=== PATIENT | female | born 1950 | race Hispanic/Latino ===

== ENCOUNTER 2017-02-27 08:51 | Day surgery (SDC) | payer MEDICAID ==
--- NOTE | 2017-02-24 09:09 | PCM.ANEPRE ---
Anesthesia Pre-Op Review Reason for Review: admissions 08/2016 and 09/2016 for stroke, resp failure. Hgb A1c 8.7 Anesthesia Recommendations: Proceed with Procedure Additional Comments 66yo woman with CRF and catheter dialysis 3x/wk. for left brachiocephalic fistula by patrice wadsworth (possible GA) on 02/27/17. End stage complications Note bradycardia during JUAN 09/11 that resolved: DATE OF SERVICE: 09/05/2016 CRITICAL CARE NOTE: This lady underwent JUAN. She had a stroke, and I was asked to do a JUAN. While doing the JUAN, the patient suddenly became markedly bradycardic and apneic. She was given 0.4 mg of Narcan. She did not respond. CPR was started at that point and an amp of epinephrine was given. Following that, she got another amp of Narcan as well as 0.5 of Romazicon. Following that, spontaneous respiration was noted, and she went into sinus tachycardia interrupted by what appeared to be atrial fibrillation and periods of rate-related bundle branch block. Admitted again 10/12 with fluid overload and had another (decent) JUAN: 10/09/16 discharge summary: Hospital Course Patient is a 66-year-old female with a past medical history of hypertension diabetes CVA and GERD that is presenting with a 2 week history of progressively worsening dyspnea and bilateral lower extremity swelling. She was initially thought to have CHF, however her echocardiogram showed only mild CHF indicating her fluid overload was most likely secondary to renal failure and fluid overload. She was treated with Lasix through her IV and she improved through her hospital stay and was eventually able to wean off oxygen. I did consult nephrology for her chronic renal failure. She was discharged home on 40 mg of Lasix twice a day per nephrology. She will need follow-up with nephrology as an outpatient as she will likely eventually need hemodialysis. She will also need follow-up with primary care physician in one week. She was stable at the time of discharge. Delineated problem list as below JUAN Interpretation Summary 10/07/16 The left ventricle is normal in size. Left ventricular systolic function is normal without focal wall motion abnormalities. The ejection fraction is estimated to be 55-60%. Assessment of diastolic parameters suggests a pseudonormalization pattern, consistent with elevated filling pressures ( evidence for diastolic CHF).The right ventricle is normal in size and function. The right ventricular systolic pressure is estimated at 42 mmHg assuming a right atrial pressure of 8 mm Hg.The left atrium is moderately dilated. The right atrium is mildly dilated. The interatrial septum bows toward right atrium consistent with elevated left atrial pressure.There is mild to moderate mitral regurgitation. There is moderate tricuspid regurgitation. There is no other significant valvular heart disease. Pt will have recent dialysis labs. Evidently stable (no ER visits/ hospitalizations) in 2017. Ok to proceed with usual DOS evaluation and conversation with Patrice on anesthetic techniques, and discussion of higher risks due to her medical conditions with patient. Chart Reviewed by: Percy Foster MD, MD Feb 24, 2017 09:09
[~2017-02-27] VITALS: Ht 167.6 cm; Wt 65.1 kg
[~2017-02-27 08:51] MED LIST: 0.9% Sodium Chloride 500 ML IV SCH; AMLO5TAB2 PO; ASPI-973 PO; CLOP75TA28 PO; CeFAZolin 2 Gm/50 mL D5W IV Premix IV ONE; INSU100C8 SUBQ; INSU100V7 SUBQ; LABE100T4 PO; LIP40 PO; LOSA25TA21 PO
[2017-02-27] MEDS ORDERED: Phenylephrine/NS 100 mCg/mL 10 mL Syringe IVPUSH ONE (08:52)
[2017-02-27] MEDS ORDERED: fentaNYL-PF 50 mCg/mL 2 mL Inj ONE (08:52)
[2017-02-27] MEDS ORDERED: Vasopressin 20 Unit/mL Inj ONE (08:52)
[2017-02-27] MEDS ORDERED: Propofol 10,000 mCg/mL 20 mL Inj ONE (08:52)
[2017-02-27] MEDS ORDERED: EPHEDrine/NS 5 mg/mL 5 mL Syringe ONE (08:52)
[2017-02-27] MEDS ORDERED: Dexamethasone 4 mg/mL Inj ONE (08:52)
[2017-02-27] MEDS ORDERED: 0.9% Sodium Chloride 1,000 ML IV ONE (09:30)
[2017-02-27 09:37] VITALS: BP 148/67; PULSE 69; RESP 14; O2SAT 97
[2017-02-27] MEDS ORDERED: FURO40TA4 PO (10:01)
[2017-02-27] MEDS ORDERED: Bupivacaine-MPF 0.5% 30 mL Inj INFILTRATE ONE (11:28)
[2017-02-27] MEDS ORDERED: Heparin 5,000 Unit/mL Inj IR ONE (11:28)
--- NOTE | 2017-02-27 12:12 | PCM.HPANE ---
Patient Data Date of Service: Feb 27, 2017 Surgeon Admitting Provider: Attending Provider:Los Iraheta MD Primary Care Physician:Carleen Rebolledo MD Other Provider:Howard Woodard Anesthesia Reason for Visit End Stage Renal Failure Ht/WT & BMI Height (Feet): 5 Height (Inches): 6.00 Weight (Kilograms): 65.100 Body Mass Index 23.00 Allergies Coded Allergies: No Known Allergies (Verified , 09/16/16) Past Anesthesia History Anesthesia History: Denies:: Anesthesia Reactions Diabetes History Hx Diabetes?: Yes (INSULIN CONTROLLED) Type of Diabetes: Type II Current Bedside Blood Glucose: 138 MRSA MRSA: No Medications Blood Thinner: Aspirin, Plavix Hypertension Medication: Yes Home Meds Incl Beta Jae: Yes (LABETALOL) Date Beta Jae Taken: Feb 27, 2017 Time Beta Jae Taken: 0500 Reported Medications Furosemide 40 Mg Addjae35 Mg PO DAILY 02/27/17 Clopidogrel 75 Mg Qcxfae44 Mg PO DAILY Ref 0 02/23/17 Losartan Potassium 25 Mg Qylihm90 Mg PO DAILY 02/23/17 Insulin Aspart (NovoLOG U100 Insulin Vial)100 U/Ml U1 Unit SUBQ prn PRN blood glucose #1 VIAL Ref 0 02/23/17 Atorvastatin (Lipitor)40 Mg Akabxw14 Mg PO DAILY Ref 0 02/23/17 Insulin Glargine (Lantus U100 Insulin Vial)100 Unit/Ml Vial15 Unit SUBQ DAILY # 1 VIAL Ref 0 02/23/17 Labetalol 100 Mg Cbtaws544 Mg PO TID 02/23/17 Aspirin 81 Mg Dxprnb18 Mg PO DAILY Ref 0 02/23/17 Amlodipine 5 Mg Tablet5 Mg PO BID Ref 0 02/23/17 Discontinued Reported Medications Atorvastatin (Lipitor)40 Mg Ydtayn96 Mg PO DAILY Ref 0 10/06/16 Aspirin 325 Mg Kafyao529 Mg PO DAILY #1 BOTTLE 10/06/16 Insulin Aspart (NovoLOG U-100 Pen)100 Unit/Ml Insuln.pen0-4 Units SC ACHS PRN BLOOD SUGAR 10/06/16 Discontinued Scripts Potassium Chloride 20 Meq Tab.er.prt10 Meq PO DAILY 30 Days Ref 0 TAKE WITH FOOD Prov:Mark Eckert DO 10/09/16 Furosemide (Lasix)40 Mg Elboky09 Mg PO BID 30 Days Ref 0 Prov:Mark Eckert DO 10/09/16 Labetalol 200 Mg Geltnh958 Mg PO Q8H 30 Days Prov:Sylvester Sarabia MD 09/08/16 Insulin Glargine (Lantus U100 Insulin Vial)100 Unit/Ml Vial15 Unit SUBQ DAILY 30 Days Prov:Sylvester Sarabia MD 09/08/16 Omeprazole 20 Mg Capsule.dr20 Mg PO DAILY #30 CAPSULE Ref 0 Prov:Sylvester Sarabia MD 09/07/16 Amlodipine 5 Mg Njbuqa02 Mg PO DAILY 30 Days Prov:Sylvester Sarabia MD 09/07/16 Clopidogrel 75 Mg Bbjxxg76 Mg PO DAILY 30 Days Prov:Sylvester Sarabia MD 09/07/16 History History of ENT Problems?: No Hx of Heart Problems?: Yes Cardiovascular History: Positive for:: Edema Hypertension Denies:: Cardiac Surgery (prior hx of heart cath with stents) Chest Pain Congestive Heart Failure Irregular Heartbeat Pacemaker Other Cardiac History: pt had brief cardiac arrest during JUAN- 08/2016 Hx of Respiratory Problem?: Yes Respiratory History: Positive for:: Dyspnea (hx of respiratory failure/ pleural effusion admission 09/2016) Denies:: Asthma COPD Chest Surgery Emphysema Hemoptysis Oxygen Administration Pneumonia Tuberculosis Use of C-PAP Machine Use of Inhalers / NEBS Hx Neurologic Problems?: Yes Neurological History: Positive for:: CVA (prior TIA and current stroke symptoms) Denies:: Alzheimer's Disease Dementia Dizziness Headaches (not prior to this visit) Parkinson's Disease Seizures Hx of GI Problems?: Yes Gastrointestinal History: Positive for:: Heartburn Denies:: Diverticulitis Gastroesphageal Reflux Gastrointestinal Bleeding Hepatitis Hiatal Hernia Rectal Bleeding Hx of Problems?: Yes Other Pertinent History: current dialysis thru tunnel cath Female Hx: Denies:: Currently (POST MENOPAUSAL) Endometriosis Pelvic Inflammatory Problems with Breasts? Skin History: Denies:: History Skin Disorders? Pressure Ulcers Hx Musculoskeletal Problems?: No Musculoskeletal History: Denies:: Fibromyalgia Joint Replacement Musculoskeletal Trauma Osteoarthritis Hx of Psycho/Social Problems?: No Hx Surgeries?: No (tunnel cath placement) Hx Any Other Health Problems?: Yes Other History: Positive for:: Hospitalization Denies:: Cancer Thyroid Disease History Blood Transfusions: Denies:: Blood Transfuse Reaction Blood Transfusions Hx Diabetes: Yes (INSULIN CONTROLLED)Bedside Blood Glucose: 138 Hx Alcohol Use: NoHx Substance Use: No Smoking Status: Never Smoker Have You Smoked inLast 12 mo: No Stop/Bang P-Blood Pressure: treated: Yes B- Body Mass Index > 35 kg/m2: No A- Age over 50: Yes N- Neck Large Circumference: No G- Gender Male: No Risk Assessment Category Category 1A: Patient has history of documented sleep apnea, and HAS NOT received any narcotic, sedative or anesthesia administration during this stay. Category 1B: Patient has history of documented sleep apnea, and HAS received any narcotic , sedative or anesthesia administration during this stay Category 2: Patient has SUSPECTED Obstructive Sleep Apnea, and HAS received any narcotic , sedative or anesthesia administration during this stay. Category 3: Patient has SUSPECTED Obstructive Sleep Apnea and HAS NOT received narcotic, sedative or anesthesia administration during this stay. Category 4: Outpatient in Procedural Areas with known sleep apnea or who screen positive for High Risk via the STOP/BANG questionnaire. Exam Exam Vital Signs Vital Signs Date Time Temp Pulse Resp B/P Pulse Ox O2 Delivery O2 Flow Rate FiO2 02/27/17 09:37 36.3 69 14 148/67 97 Room Air General Appearance: Alert, Oriented X3, Cooperative, No Acute Distress HEENT/AIRWAY: MP 2 (multiple missing, chipped and loose teeth.) Lungs: Clear to Auscultation, Normal Air Movement Heart: Exam Unremarkable, Regular Rate/Rhythm, Murmur (II/ YUNIER RUSB without radiation) Additional Information Distant heart sounds Meds/Labs/Diagnostics Admission Meds Current Medications Sodium Chloride (Normal Saline) 1,000 ml @ ud STK-MED ONCE IV Last administered on 02/27/17 09:30; Start 02/27/17 at 09:30; Stop 02/27/17 at 09:36; Status DC Bupivacaine HCl (Sensorcaine-MPF 0.5% Inj) 30 ml STK-MED ONCE INFILTRATE Last administered on 02/27/17 11:28; Start 02/27/17 at 11:28; Stop 02/27/17 at 11:33; Status DC Heparin Sodium (Porcine) (Heparin Inj) 5,000 unit STK-MED ONCE IR Last administered on 02/27/17 11:28; Start 02/27/17 at 11:28; Stop 02/27/17 at 11:33; Status DC Cefazolin Sodium (Ancef Inj) 2 gm STK-MED ONCE IVPUSH Last administered on t 11:23; Start 02/27/17 at 11:23; Stop 02/27/17 at 11:33; Status DC Bedside Blood Glucose: 138 Labs Test 02/27/17 09:33 Potassium Level 4.8mEq/L (3.5-5.2) Plan Impression Patient chart reviewed, patient interviewed and anesthestic plan with risks, benefits, and alternatives discussed, and informed consent obtained. NPO Status: 02/27@mn, WATER @0730 TODAY ASA Physical Status: ASA3 Severe Disease Anesthetic Plan: GA Bene/Risks/Altern/Consents: Yes HP Complete Prior to Induction: Yes Other [facility] fraud mediating Mark Garcia DO Feb 27, 2017 12:12
[2017-02-27] MEDS ORDERED: Lactated Ringer's 1,000 ML IV SCH (12:14)
[2017-02-27] MEDS ORDERED: Lactated Ringer's 500 ML IV PRN (12:14)
[2017-02-27] MEDS ORDERED: HYDROmorphone 1 mg/mL Inj IVPUSH PRN (12:15)
[2017-02-27] MEDS ORDERED: MetoCLOpramide 5 mg/mL 2 mL Inj IVPUSH PRN (12:15)
[2017-02-27] MEDS ORDERED: Dexamethasone 4 mg/mL Inj IVPUSH PRN (12:15)
[2017-02-27] MEDS ORDERED: Ondansetron 2 mg/mL 2 mL Inj IVPUSH PRN (12:15)
[2017-02-27] MEDS ORDERED: Phenylephrine 10,000 mCg/mL Inj IVPUSH PRN (12:15)
[2017-02-27] MEDS ORDERED: fentaNYL-PF 50 mCg/mL 2 mL Inj IVPUSH PRN (12:15)
[2017-02-27] MEDS ORDERED: EPHEDrine Sulfate 50 mg/mL Inj IVPUSH PRN (12:15)
[2017-02-27] MEDS ORDERED: HYDROcodone-APAP 5-325 mg Tablet PO PRN (12:25)
[2017-02-27 12:27] VITALS: BP 138/59; PULSE 67; RESP 12; O2SAT 98
[2017-02-27 12:35] VITALS: BP 148/63; PULSE 69; RESP 15; O2SAT 98
[2017-02-27 13:00] VITALS: BP 154/66; PULSE 70; RESP 15; O2SAT 92
[2017-02-27 13:10] VITALS: BP 154/60; PULSE 72; RESP 16; O2SAT 92
--- NOTE | 2017-02-27 13:20 | PCM.ANEP1 ---
Post Anesthesia Phase 1 PACU Phase 1 Assessment Date of Service: Feb 27, 2017 Vital Signs Vital Signs Date Time Temp Pulse Resp B/P Pulse Ox O2 Delivery O2 Flow Rate FiO2 02/27/17 13:10 72 16 154/60 92 Room Air 02/27/17 13:00 70 15 154/66 92 Room Air 02/27/17 12:35 69 15 148/63 98 Simple Mask 8 02/27/17 12:27 35.9 67 12 138/59 98 Simple Mask 8 02/27/17 09:37 36.3 69 14 148/67 97 Room Air Anesthetic Administered: GA Level of Alertness: Drowsy, not talking Pain: No Nausea or Vomiting: No Oxygen Delivery: Simple Mask (6L) Lungs: Clear to Auscultation, Normal Air Movement Mark Garcia DO Feb 27, 2017 13:19
[2017-02-27 15:00] VITALS: BP 150/62; PULSE 77; RESP 16; O2SAT 96
--- NOTE | 2017-02-27 16:04 | PCM.ANEP2 ---
Post Anesthesia Evaluation ASA/CMS Post Anesthesia Date of Service: Feb 27, 2017 VS in Patient's Normal Range?: Yes Resp Stable; Airway Patent?: Yes CV Function & Hydration Stable: Yes Mental Status Recovered?: Yes Pain control Satisfactory?: Yes N/V Control Satisfactory?: Yes Mark Garcia DO Feb 27, 2017 16:04
--- NOTE | 2017-02-27 23:21 | OP ---
[address] [address] OPERATIVE REPORT PATIENT: LUDA PATRICIO : 1950 MR#: [id number] ADMIT: 02/27/2017 JOB ID: [id number] DATE OF SURGERY: 02/27/2017 PREOPERATIVE DIAGNOSIS(ES): End-stage renal failure. POSTOPERATIVE DIAGNOSIS(ES): End-stage renal failure. PROCEDURE: Left brachiocephalic arteriovenous fistula. SURGEON: Los Iraheta MD. MATHEMATICAL ENGINEERING TECHNICIAN: Rufino Ball PA-C. INDICATIONS: A 66-year-old female with end-stage renal failure on dialysis. She needs a fistula as she is currently being dialyzed through a tunneled catheter. After her preoperative evaluation, including bilateral upper extremity arterial and venous duplex exams, it is elected to use the left upper arm cephalic vein to the left brachial artery. FINDINGS: At the conclusion of the procedure her vein was dilating, she had an excellent thrill the could be felt in the lower part of her upper arm, and she had an easily palpable left radial pulse. The vein was approximately 3 mm in diameter. She had normal inflow and backflow from the brachial artery. PROCEDURE: At the beginning and end of the operation, the SCOAP checklist was completed. She received an LMA anesthetic and using ChloraPrep her left upper extremity was prepped and draped in usual fashion. She received antibiotics but they were administered just moments after the incision was made. With sharp dissection, the cephalic vein was identified, mobilized distally to a branch point. It was then mobilized proximally allowing to swing without restriction to the artery. The artery was exposed and controlled proximally and distally with vessel loops. Beyond its branch point the vein was divided and the distal branches ligated with 3-0 silk suture ligature. The vein was flushed with heparinized saline included. The common wall between the two branches was opened to create a large welch for the anastomosis. The artery was opened longitudinally, flushed proximally and distally with heparinized saline. The welch was then fashioned sharply and then the anastomosis completed with running 6-0 Prolene. The vein was flushed before completing the anastomosis. The artery was first backflushed into the vein followed by forward flushing into the vein and then forward flow to the hand with results as stated above. There was no bleeding from the anastomosis. The wound was closed with running subcutaneous 3-0 Vicryl and running subcuticular 4-0 Vicryl. Dermabond was applied on the incision. Estimated blood loss was 10 cc. No apparent complications. The final sponge, needle and instrument counts were announced as correct and the patient was returned to the recovery room in stable condition. Critical assistance provided by ELADIO Becerril
== END 2017-02-27 23:59 | disposition home or self-care (01) ==
LOC: SAS 08:51
PROVIDERS: ATTEND Surgery
DX: E11.22 Type 2 diabetes mellitus with diabetic chronic kidney disease (principal); I12.0 Hypertensive chronic kidney disease with stage 5 chronic kidney disease or end stage renal disease; N18.6 End stage renal disease; Z99.2 Dependence on renal dialysis; Z79.4 Long term (current) use of insulin; Z79.84 Long term (current) use of oral hypoglycemic drugs; I25.10 Atherosclerotic heart disease of native coronary artery without angina pectoris; I25.2 Old myocardial infarction; Z95.5 Presence of coronary angioplasty implant and graft; D63.1 Anemia in chronic kidney disease
CPT/HCPCS: 36415; 36821; 84132; J0690; J1100; J1644; J2250; J2370; J3010; J7030

== ENCOUNTER 2017-06-28 01:31 | Day surgery (SDC) | payer MEDICAID ==
[~2017-06-28] VITALS: Ht 160 cm; Wt 63.6 kg
[2017-06-28] VITALS (9 sets, daily range): BP systolic 146–163; BP diastolic 49–97; PULSE 65–73; RESP 16–20; O2SAT 94–98
[~2017-06-28 01:31] MED LIST changes: -0.9% Sodium Chloride 500 ML IV SCH; -ASPI-973 PO; +ASPI325T32 PO; -CeFAZolin 2 Gm/50 mL D5W IV Premix IV ONE; +ERGO2000 PO; +FURO40TA4 PO; -LOSA25TA21 PO; +LOSA50TA37 PO
[2017-06-28] MEDS ORDERED: CeFAZolin 1 Gm/50 mL D5W IV Premix IV SCH (06:00)
[2017-06-28 07:37] LABS: BASOPHILS % (AUTO) 0.5 % (0-3); EOSINOPHILS % (AUTO) 1.8 % (0-5); MONOCYTES % (AUTO) 7.3 % (4-12); Mean Corpuscular Hemoglobin 32.2 pg (27.0-35.0); Mean Corpuscular Volume 95.5 fL (81-100); Platelet Count 190 bil/L (150-400)
[2017-06-28] MEDS ORDERED: Heparin 1,000 Unit/mL 10 mL Inj ONE (07:50)
[2017-06-28] MEDS ORDERED: Heparin 10,000 Unit/1,000 mL NS Premix IV ONE (07:50)
[2017-06-28] MEDS ORDERED: CeFAZolin 1 Gm/50 mL D5W Duplex Bag IV ONE (08:26)
[2017-06-28] MEDS ORDERED: 0.9% Sodium Chloride 250 ML ONE (08:27)
[2017-06-28] MEDS ORDERED: fentaNYL-PF 50 mCg/mL 2 mL Inj ONE (08:43)
--- NOTE | 2017-06-28 14:25 | DRSVH ---
PROCEDURE: AV FISTULA INDICATIONS: MALFUNCTION COMPARISON: None. Technique: 1. Antegrade access of the venous outflow the left upper extremity fistula. 2. Embolization of a large redistributed within the mid portions of the venous outflow. 3. Completion fistulogram. The indications, alternatives, benefits, risks, and complications of the procedure were explained to the patient.. Informed written consent was obtained and placed in the chart. The patient was armond t to the angiography suite, and conscious sedation was administered intravenously by [facility] staff, while continuous cardiorespiratory monitoring was performed. Maximum sterile barrier technique was employed per standard protocol, including hand hygiene, cap, ma sk, sterile gown and gloves, and 2% chlorhexidine. One percent lidocaine was used to anesthetize the skin over the area of interest. Using a micropuncture sheath, the venous outflow was accessed in an a ntegrade fashion. A micropuncture sheath was exchanged for a short 6 Prydeinig sheath. A fistulogram was performed. Next, with the aid of a Glidewire and a 5 Prydeinig Kumpe catheter, a large venous tributary within the midportion of the venous outflow was accessed. A microcatheter was deployed within the 5 Prydeinig catheter. Multiple embolization coils were deployed within this vein until hemostasis was achi eved. Of note, a 3 mm diameter embolization coil was dislodged centrally and remained displaced in th e axillary region of the tributary vein projected over the humerus. Completion fistulogram demonstrat ed complete hemostasis of this vessel. FINDINGS: Initial fistulogram demonstrates a large venous tributary of the venous outflow of the lef t upper extremity fistula. Completion fistulogram demonstrating stasis of this vessel after multiple embolization coils were deployed. A smaller tributary vein is also noted more peripherally within the venous outflow. IMPRESSION: 1. Successful embolization of a large venous tributary of the venous outflow the left upper extremity fistula described above. 2. Additional small venous tributary noted more peripherally off the venous outflow. If there is cont inued failure of the fistula to mature, embolization of this vein could be considered as well. Radha carpenter, at the termination of the study there was a noticeable improvement in the palpable thrill within t he fistula outflow after embolization of the large venous tributary. This finding suggests that this embolization may be adequate for continued fistula maturity. Dictated by: Sushila Cotto M.D. on 06/28/2017 at 14:15 Approved by: Sushila Cotto M.D. on 06/28/2017 at 14:22
== END 2017-06-28 23:59 | disposition home or self-care (01) ==
LOC: SOUO 01:31
PROVIDERS: ATTEND Radiology Vascular & Interventional Radiology
DX: T82.590A Other mechanical complication of surgically created arteriovenous fistula, initial encounter (principal); I87.8 Other specified disorders of veins; Y83.2 Surgical operation with anastomosis, bypass or graft as the cause of abnormal reaction of the patient, or of later complication, without mention of misadventure at the time of the procedure; I25.10 Atherosclerotic heart disease of native coronary artery without angina pectoris; I25.2 Old myocardial infarction; Z79.02 Long term (current) use of antithrombotics/antiplatelets

== ENCOUNTER 2017-08-22 13:28 | Emergency (ER) | payer MEDICAID ==
[~2017-08-22] VITALS: Ht 157.5 cm; Wt 64.7 kg
[2017-08-22 13:37] VITALS: BP 183/60; PULSE 77; RESP 18; O2SAT 97
[2017-08-22 13:54] VITALS: BP 172/54; PULSE 74; RESP 18; O2SAT 96
[2017-08-22] MEDS ORDERED: Gelatin Sponge 12-7 MM TOPICAL ONE ×2 (14:10→15:35)
[2017-08-22 15:33] LABS: BASOPHILS % (AUTO) 0.4 % (0-3); MONOCYTES % (AUTO) 5.2 % (4-12); Mean Corpuscular Hemoglobin 31.1 pg (27.0-35.0); Mean Corpuscular Volume 90.7 fL (81-100); NEUTROPHILS % (AUTO) 78.4 % (40-74); Platelet Count 171 bil/L (150-400)
--- NOTE | 2017-08-22 15:34 | ED.REPORT ---
HPI-Extremity Problem Upper Date of Service Aug 22, 2017 ED Provider: Gustavo Mistry MD Patient is a 67 year old female with a history of ESRD on dialysis, cardiac catheterization, hypertension, and DM on Plavix who presents to the ED via EMS complaining of bleeding from the fisula in her left arm onset two weeks that has worsened today after dialysis. She has had bleeding intermittently from her fistula previously after dialysis, but never had it last this long. She arrived to the ED with a clamp over her fistula site that was placed around 12:20 after bleeding continued for 1 hour and 15 minutes per [facility]. Additional symptoms include abnormal bleeding in her gums onset today. She denies nausea, vomiting, or any current pain. Pt reports that she has never needed a transfusion before. Her last dose of Plavix and Aspirin was yesterday morning. Nursing Notes Stated Complaint: BLEEDING FROM FISTULA Chief Complaint: General Complaint Nursing Notes Reviewed: Yes (Brilig not reconciled) Allergies: Coded Allergies: No Known Allergies (Verified , 05/26/17) Scheduled Amlodipine (Amlodipine) 5 Mg Tablet 5 MG PO BID Aspirin (Aspirin) 325 Mg Tablet 325 MG PO DAILY Atorvastatin (Lipitor) 40 Mg Tablet 40 MG PO DAILY Clopidogrel (Clopidogrel) 75 Mg Tablet 75 MG PO DAILY Ergocalciferol (Vitamin D2) (Vitamin D2) 2,000 Unit Tablet 1.25 MG PO WEEKLY Furosemide (Furosemide) 40 Mg Tablet 40 MG PO DAILY Insulin Aspart (NovoLOG U100 Insulin Vial) 100 U/Ml U 5 UNIT SUBQ TIDAC Insulin Glargine (Lantus U100 Insulin Vial) 100 Unit/Ml Vial 15 UNIT SUBQ DAILY Labetalol (Labetalol) 100 Mg Tablet 100 MG PO TID Losartan Potassium (Losartan Potassium) 50 Mg Tablet 50 MG PO DAILY General Time Seen by MD: 15:29 Chief Complaint Other (Bleeding from the fistula in her left arm) Hx Obtained From: Patient, Son, [employer] Mixer Arrived By: Walk-in Onset Occurred: 1 - 4 hours ago Symptom Duration: Constant Location: : Arm left Quality: Painful Severity: Current: No pain currently Severity: Maximum: No pain Recent Healthcare: No recent hospitalization, Recent doctor visit Similar Sx Previous: Yes Past Medical History Past Medical History Notes: On Plavix and Aspirin Past Medical History HCV, unknown chronicity or status DMII, uncontrolled, insulin using Dyslipidemia HTN CAD CKDIV Stroke Reports: Diabetes mellitus, Hyperlipidemia, Hypertension, Stroke Past Surgical History Fistula placed in left arm Family History Reports: Coronary artery disease Smoking History Never Smoker Social History Alcohol Use: Denies alcohol use Drug Use: Denies drug use Other Social History: Good social support, Local resident Ambulatory Status Independent Review of Systems Review of Systems Note: Constant bleeding from her left arm fistula Abnormal gum bleeding today Complete sys rev & neg: except as marked. GI: Denies: Nausea, Vomiting Physical Exam Initial Vital Signs Vital Signs (First) Date Time Temp Pulse Resp B/P Pulse Ox O2 Delivery O2 Flow Rate FiO2 08/22/17 13:37 36.6 77 18 183/60 97 Room Air Initial VS: Reviewed, Vital signs normal (HTN) Head / Eyes: Atraumatic, Normocephalic Lower Extremities: Vascular intact, Neuro intact, No swelling, No tenderness Skin: Warm, Dry, No cyanosis Neurologic: Alert, Oriented, Nonfocal Psychiatric: Mood/affect normal, Behavior normal, Normal thought content General/Constitutional: Awake, Alert, No acute distress Pleasant Respiratory / Chest: Atraumatic, Breath sounds NL, Breath sounds = bilat, No respiratory distress Cardiovascular: Heart rate NL, Regular rhythm, Heart sounds NL Upper Extremity / MS: Neurologic intact, Vascular intact Bleeding from left arm at the site of the fistula Small arterial spurt that is controlled with direct pressure ENT: Atraumatic, Airway patent No active bleeding from gums Interpretation & Diagnostics Lab Results Interpretation Result Diagram: 08/22/17 1515 08/22/17 1515 Test 08/22/17 15:15 08/22/17 15:23 White Blood Count 9.0th/mm3 (3.8-10.1) Red Blood Count 3.67mil/mm3 (3.90-5.20) Hemoglobin 11.4g/dL (12.0-15.6) Hematocrit 33.3% (35.0-46.0) Mean Corpuscular Volume 90.7fL (81-100) Mean Corpuscular Hemoglobin 31.1pg (27.0-35.0) Mean Corpuscular Hemoglobin Concent 34.2% (32.0-37.0) Red Cell Distribution Width 13.2% (12.3-15.4) Platelet Count 171bil/L (150-400) Neutrophils (%) (Auto) 78.4% (40-74) Lymphocytes (%) (Auto) 13.9% (14-46) Monocytes (%) (Auto) 5.2% (4-12) Eosinophils (%) (Auto) 2.0% (0-5) Basophils (%) (Auto) 0.4% (0-3) Prothrombin Time 10.7sec (8.1-12.5) Prothromb Time International Ratio 1.00ratio Sodium Level 137mEq/L (134-144) Potassium Level 4.4mEq/L (3.5-5.2) Chloride Level 97mEq/L (97-108) Carbon Dioxide Level 28mmol/L (18-29) Blood Urea Nitrogen 19mg/dL (8-27) Creatinine 2.14mg/dL (0.57-1.00) Estimat Glomerular Filtration Rate 33mL/min (>59) Glucose Level 90mg/dL (60-99) Calcium Level 9.4mg/dL (8.5-10.1) Total Bilirubin 0.7mg/dL (0.0-1.2) Aspartate Amino Transf (AST/SGOT) 18U/L (0-50) Alanine Aminotransferase (ALT/SGPT) 13U/L (0-32) Alkaline Phosphatase 100U/L (25-165) Total Protein 7.8g/dL (6.4-8.4) Albumin 4.7g/dL (3.4-5.0) Hold Urine Received (Received) Lab Results Interpretation: CBC chronic anemia CMP chronic renal failure, dialysis Re-Eval/Medical Decision Med Decision/Clinical Course This is a 67-year-old female on aspirin and Plavix cardiac stents he has chronic renal failure and recently started hemodialysis, today she presents with a bleeding from her fistula access site the left upper extremity. A clamp was applied, but patient continues to bleed. The nurses note mentions bleeding gums, patient has had no bleeding today. Has normal oral exam. See the patient clamp is been in some place for sometime, but has been over a bulky ABD dressing, when I removed it to place a more focal Gelfoam splint, there is a pressure spurt of blood, but the Gelfoam was placed, and the clamp was reapplied with more focused pressure. However given its directly over the fistula, I consulted surgery. Additionally given the patient's dialysis status, DDAVP was administered. She did not yet had her aspirin and Plavix today. Surgery came and saw the patient, is preparing to place a suture, but when this the clamp was then removed, the bleeding had stopped. The patient deserved remained hemostatic. Decision was applied and Frank wrap continue and permit discharge. Patient is comfortable continuing to monitor. Hold her aspirin and Plavix today, but plans to resume tomorrow. Source of Hx: Old records Re-Evaluation/Progress : Time of Eval: 15:42 Re-Evaluation/Progress Note: Patient rechecked with computer systems support specialist present. Went over patient's current medication list. Discussed plan for admission if patient's fistula stopped bleeding. Consultation #1: Referral / Consult Name: Clifford Sanchez MD Consulted With: Surgeon Call Returned at: 16:22 Middleware Consultant: Will see patient, Agrees with eval, Agrees with plan Note: Discussed patient's case with surgeon, Dr. Sanchez. He will see the patient. Consultation #2: Referral / Consult Name: Clifford Sanchez MD Consulted With: Surgeon Call Returned at: 16:40 Middleware Consultant: Agrees with eval, Agrees with plan Note: Discussed patient's case with surgeon, Dr. Sanchez. He states that someone will come down to fix the patient's fistula. Differential Diagnosis: Negative: Abrasion, Abscess, Avulsion injury, Cellulitis, Fracture, Joint effusion, Shoulder disloc ant, Shoulder disloc post , Shoulder ligament injury Counseled Regarding: Diagnosis, Lab results, Need for follow-up, When/why to return to ED Discharge & Departure Impression: Primary Impression: Hemorrhage of arteriovenous fistula Encounter type: initial encounter Qualified Code: T82.838A - Hemorrhage due to vascular prosthetic devices, implants and grafts, initial encounter Disposition: Home Discharge Condition All VS Reviewed: Yes Condition: Stable Additional Instructions: 1. Keep the compression bandage on until tomorrow. 2. Skip tonight's dose of aspirin and Plavix, resume tomorrow. 3. Return again if you have further bleeding. If bleeding does start, make sure to apply direct pressure over the bleeding site as you return 1. Mantener el vendaje con presion hasta manana. 2. Hoy no tome hirsch dosis de la noche de aspirina y plavix, comience otra vez manana. 3. Vuelva otra vez si le vuelve a sangrar. Si le comienza a sangrar, asegurese de aplicar presion directa sobre el lugar de donde esta sangrando y vuelva. Referrals: Carleen Rebolledo MD (PCP) Scribe Attestation Portions of this note were transcribed by Angelia Ricks. I, Dr. Mistry, personally performed the history, physical exam and medical decision-making; I reviewed and confirmed the accuracy of the information in the transcribed note. copies to: Carleen Rebolledo MD, Matthew F MD Aug 22, 2017 15:34 Angelia Ricks Aug 22, 2017 15:42 Gustavo Mistry MD Aug 22, 2017 15:34 Angelia Ricks Aug 22, 2017 15:42
[2017-08-22] MEDS ORDERED: SODIUM CHLORIDE 0.9% IV ONE (15:50)
[2017-08-22] MEDS ORDERED: DESMOPRESSIN IV ONE (15:50)
[2017-08-22 16:09] VITALS: BP 174/68; PULSE 74; RESP 24; O2SAT 97
[2017-08-22 16:38] VITALS: BP 134/52; PULSE 74; RESP 14; O2SAT 96
[2017-08-22 17:28] VITALS: BP 148/59; PULSE 72; RESP 16; O2SAT 96
[2017-08-22 18:22] VITALS: BP 152/62; PULSE 73; RESP 19; O2SAT 96
--- NOTE | 2017-08-22 19:16 | CONS ---
[address] [address] CONSULTATION REPORT PATIENT: LUDA PATRICIO : 1950 MR#: [id number] ADMIT: 08/22/2017 JOB ID: [id number] DATE OF SERVICE: 08/22/2017 CHIEF COMPLAINT/IDENTIFICATION: Dr. Mistry in the Emergency Department has asked us to see this 67-year-old in consult from bleeding from her AV fistula. HISTORY OF PRESENT ILLNESS: The patient has a left arm AV fistula for which she gets dialysis. By report, she has had post dialysis bleeding for several weeks; gradually worsening each day, and today after dialysis, she had 1 hour 15 minutes of bleeding at the [facility]. Notably she also reports some abnormal bleeding from her gums today. She was eventually sent to the emergency department where she is seen. She did take Plavix and aspirin yesterday. PAST MEDICAL HISTORY: Diabetes, coronary artery disease, hypertension. MEDICATIONS: Amlodipine, aspirin, atorvastatin, Plavix, furosemide, insulin, labetalol, losartan. DIRECTED EXAMINATION: Patient has a C-clamp on her left arm, and no active bleeding, decreased thrill. LABORATORY DATA: INR is 1.0. Her platelet count is 171. IMPRESSION AND PLAN: Bleeding from left arm atrioventricular fistula. It looks like at this moment it is controlled well with direct pressure. We will plan to put a stitch in the skin under local in the emergency department under aseptic conditions, and this should solve the problem.
== END 2017-08-22 18:23 | disposition home or self-care (01) ==
LOC: SED 13:28
DX: T82.838A Hemorrhage due to vascular prosthetic devices, implants and grafts, initial encounter (principal); Y83.8 Other surgical procedures as the cause of abnormal reaction of the patient, or of later complication, without mention of misadventure at the time of the procedure; Y99.8 Other external cause status; Y92.89 Other specified places as the place of occurrence of the external cause; I12.0 Hypertensive chronic kidney disease with stage 5 chronic kidney disease or end stage renal disease; N18.6 End stage renal disease; E11.9 Type 2 diabetes mellitus without complications; E78.5 Hyperlipidemia, unspecified; I25.10 Atherosclerotic heart disease of native coronary artery without angina pectoris; Z86.73 Personal history of transient ischemic attack (TIA), and cerebral infarction without residual deficits; Z95.5 Presence of coronary angioplasty implant and graft; Z79.4 Long term (current) use of insulin; Z79.02 Long term (current) use of antithrombotics/antiplatelets; Z79.82 Long term (current) use of aspirin
CPT/HCPCS: 36415; 80053; 85025; 85610; 96374; 99284; J2597